=== PATIENT | female | born 1995 | race Caucasian/White ===

== ENCOUNTER 2018-09-18 15:15 | Inpatient (IN) | payer OTHER ==
[~2018-09-18] VITALS: Ht 162.6 cm; Wt 59.2 kg
[2018-09-18 15:29] VITALS: Ht 162.6 cm; Wt 59.2 kg
[2018-09-18 15:30] VITALS: BP 130/75; PULSE 95; RESP 17
[2018-09-18] MEDS ORDERED: METHYLERGONOVINE 0.2 MG INJ IM PRN (16:00)
[2018-09-18] MEDS ORDERED: CARBOPROST 250 MCG INJ IM PRN (16:00)
[2018-09-18] MEDS ORDERED: OXYTOCIN 30 UNITS/LR 500 ML IV PRN (16:00)
[2018-09-18] MEDS ORDERED: MISOPROSTOL 200 MCG TAB PR PRN (16:00)
[2018-09-18] MEDS ORDERED: TERBUTALINE 1 MG/ML INJ SC ONE (16:00)
[2018-09-18] MEDS ORDERED: CEFAZOLIN 2 GM/50 ML (PMX) 50 ML IVPB SCH (16:00)
--- NOTE | 2018-09-18 16:35 | TRIAGE ---
OB Triage Datetime Report Generated by CPN: 09/18/2018 16:34 Datetime: 09/18/2018 16:33 Time of Arrival: 09/18/2018 16:10 EGA: 37.6 Arrived By: Ambulatory Arrived From: Home Datetime: 09/18/2018 16:07 Labor Evaluation Frequency: 2-4 Monitor Mode: Palpation Duration (sec)2399: 50-80 Quality: Moderate Pattern: Normal: <= 5 Contractions in 10 Minutes Resting Tone [place]: Relaxed Heart Rate FHR Baseline Rate: 135 Monitor Mode: External US Variability: Moderate 6-25 bpm Accelerations: 15X15 Decelerations: None Category: Category I Pain Assessment Pain Scale: 9 Pain Presence: Intermittent Pain Type: Contraction Pain Location: Abdomen Pain Goal: 3 Datetime: 09/18/2018 15:49 Vaginal Exam Dilatation (cms): 1.0 Effacement (%): 80 Station: -2 Exam By: wliu Datetime: 09/18/2018 15:34 Assessment Type: Triage Maternal Assessment Level of Consciousness: Fully Conscious DTR's/Clonus: DTRs 2+; No Clonus Headache: Denies Blurred Vision: No Respiratory Effort: Unlabored; Regular Rhythm; Equal Expansion Breath Sounds, Left: Clear and Equal Breath Sounds, Right: Clear and Equal Nausea/Vomiting: Denies RUQ Epigastric Pain: Denies Lower Extremities Edema: None Degree: None Upper Extremities Edema: None Degree: None Facial Edema: None Fall Risk Assessment History of Falling: (0) No Secondary Diagnosis: (0) No Ambulatory Aid: (0) Bedrest/Nurse Assist IV Therapy: (0) No Gait: (0) Normal/Bedrest/Immobile Mental Status: (0) Oriented to Own Ability Fall Score: 0 Fall Risk Score Definition: No Risk: No action required Datetime: 09/18/2018 15:33 Time of Arrival: 09/18/2018 15:12 EGA: 37.6 Arrived By: Wheelchair Arrived From: Home Chief Complaint: Pt. came to hospital c/o lower abdominal pain since last night 11oopm, pain level 9/10 Movement: Present Contractions: Regular Rupture of Membranes: Denies Vaginal Bleeding: None Vaginal Discharge: Denies Recent Sexual Intercouse: Denies Abdominal Trauma: Not Applicable Patient Complaints: Cramping Time Provider Notified: 09/18/2018 15:50 Provider Notified: po Initial Plan: r/o labor
[2018-09-18] MEDS: LACTATED RINGER'S 1,000 ML IV SCH ×3 (16:38→19:31)
[2018-09-18] MEDS ORDERED: ONDANSETRON 4 MG INJ IV STA (18:28)
[2018-09-18] MEDS ORDERED: CITRIC ACID/NA CITRATE 30 ML CUP PO ONE (18:30)
--- NOTE | 2018-09-18 19:21 | PREAC ---
Date/Time of Note Date/Time of Note DATE: 09/18/18 TIME: 19:18 Anesthesia Eval and Record Evaluation Time Pre-Procedure Interview DATE: 09/18/18 TIME: 19:18 Age 23 Sex female NPO: Other (7 hrs, she ate at 12:30 pm) Preoperative diagnosis Repeat in labor Planned procedure Past Medical History Past Medical History: Includes : : (2), Para: (1), Gestational age: (38) Surgery & Anesthesia Issues No known issue Meds Anticoagulation: No Beta Pancho within 24 hr: No Reason Beta Pancho not given: Pt. not on B-Pancho Current Medications Lactated Ringer's 1,000 ml @ 125 mls/hr Q8H IV Last administered on 09/18/18at 18:52; Admin Dose 125 MLS/HR; Start 09/18/18 at 15:54 Cefazolin Sodium/ Dextrose 50 ml @ 100 mls/hr ONCE IVPB ; Start 09/18/18 at 16:00 Oxytocin/Lactated Ringer's 500 ml @ 0 mls/hr ONCE PRN IV .VAGINAL BLEEDING; Start 09/18/18 at 16:00 Methylergonovine Maleate (Methergine) 0.2 mg ONCE PRN IM .VAGINAL BLEEDING; Start 09/18/18 at 16:00 Carboprost Tromethamine (Hemabate) 250 mcg ONCE PRN IM .VAGINAL BLEEDING; Start 09/18/18 at 16:00 Misoprostol (Cytotec) 1,[address] .VAGINAL BLEEDING; Start 09/18/18 at 16:00 Meds reviewed: Yes Allergies Coded Allergies: No Known Allergy (Unverified , 09/18/18) Allergies Reviewed: Yes Labs/Studies Labs Reviewed: Reviewed by anesthesiologist Result Diagram: 09/18/18 1630 Laboratory Tests 09/18/18 16:30 Blood Bank Test 09/18/18 16:30 Antibody Screen NEGATIVE Blood Type A POSITIVE Rh Immune Globulin Candidate NO test: Positive Studies: ECG (n/a), CXR (n/a) Pre-procedure Exam Last vitals Vital Signs Date Temp Pulse Resp B/P (MAP) Pulse Ox O2 O2 Flow FiO2 Time Delivery Rate 09/18/18 97.8 95 17 130/75 15:30 (93) Airway: Adequate mouth opening, Adequate thyromental dist Mallampati: Mallampati II Teeth: Normal Lung: Normal Heart: Normal ASA Physical Status ASA physical status: 2 Emergency: None Planned Anesthetic Neuraxial: Spinal Planned Pain Management Sub-arachniod narcotics Pre-operative Attestations Prior to commencing anesthesia and surgery, the patient was re-evaluated, there was verification of: *The patient's identity *The results of appropriate recent lab work and preoperative vital signs *The above evaluation not changing prior to induction *Anesthetic plan, risk benefits, alternative and complications discussed with patient/family; questions answered; patient/family understands, accepts and wishes to proceed. JEANETTE MCCLELLAN MD Sep 18, 2018 19:21
--- NOTE | 2018-09-18 20:05 | HP ---
Date/Time of Note Date/Time of Note DATE: 09/18/18 TIME: 20:02 OB - History Hx of Present Free Text/Dictation 23 years old 011 with single intrauterine at 37 weeks and 6 days with a SUHAS of 10/03/2018 and previous delivery complaining of uterine contractions. She states good movement. She denies nausea, vomiting, shortness of breath, chest pain, headache, visual changes, vaginal bleeding or LOF. Chief Complaint: Uterine contractions Estimated Due Date: Oct 03, 2018 : 3 Para: 1 Spontaneous : 1 Therapeutic : 0 Care: Good Care Ultrasounds: Normal mid trimester US Obstetrical Complications: None Medical Complications: None Past Family/Social History * Past Medical, Surgical, Family and Obstetric Histories reviewed from chart. Rubella: immune RPR/VDRL: Negative GBS Status: Negative HBsAG: Negative OB Admission Exam Vital Signs Vital Signs Vital Signs Date Temp Pulse Resp B/P (MAP) Pulse Ox O2 O2 Flow FiO2 Time Delivery Rate 09/18/18 97.8 95 17 130/75 15:30 (93) Physical Exam HEENT: WNL Heart: Rhythm Normal Lungs: Clear Abdomen: WNL Extremities: Normal Cervical Dilatation: 1cm Effacement: 75% Station: -2 Membranes: Intact Heart Rate: 140's Accelerations: Accelerations Present Decelerations: No Decelerations Varibility: Moderate Contractions on Admission: < 5 Minutes Apart Intensity: Moderate Last 72 hours Lab Results CBC & BMP 09/18/18 16:30 OB Assessment/Plan Other plan: 23-year-old 3 para 1011 at 37 weeks and 6 days with previous delivery in labor - FHR: No sign of metabolic acidosis- Category I - Continuous EFM, toco - CBC, blood type and screen - Please see the orders - A+/Rubella: Immune - GBS: Negative The risk of delivery including but not limited to bleeding, infection, injury to other organs (bowel, bladder, ureter, vessels, nerves), injury to fetus, blood transfusion, blood transfusion related infection, risk of anesthesia, adhesion, needs for future , removal of uterus or any other indicated surgery was discussed with the patient and her family. She expressed understanding. All of her questions were answered. She signed the informed consent. PHYSICIAN'S VERIFICATION OF INFORMED CONSENT The patient and her family was counseled regarding the procedure, its indications, risks, potential complications and alternatives and any questions were answered. Consent was obtained. PLANNED PROCEDURE/TREATMENT: delivery with possible using vacuum/forceps and any other indicated surgery PHYSICIAN'S VERIFICATION OF INFORMED CONSENT FOR BLOOD TRANSFUSION: There is a reasonable possibility that blood transfusion will be necessary as a result of the patient's procedure. I have discussed the following with the patient /patient's legal branch sales and service representative: An explanation of the benefits and risks of the transfusion of blood or blood products and the possible alternatives. All questions have been answered to the patient's satisfaction. INFORMED CONSENT:The patient has been informed of: The nature of the proposed care, treatment, services, medications, interventions or procedures. Potential benefits, risks or side effects, including potential problems related to recuperation. The likelihood of achieving care treatment and service goals. Reasonable alternatives to the proposed care, treatment and service. The relevant risks, benefits and side effects related to alternatives, including the possible results of not receiving care, treatment and services. When indicated, any limitations on the confidentiality of information learned from or about the patient. If appropriate, the risks, benefits and alternatives of the drugs to be used for sedation/analgesia including moderate sedation. If appropriate, patient has been provided information on the risks, benefits and alternatives to the transfusion of blood and/or blood products. If appropriate, patient has been provided information regarding the [employer] Dejan Blood Act. WARREN JIMENES Sep 18, 2018 20:05
[2018-09-18] MEDS ORDERED: PHENYLephrine (100 MCG/ML) 10ML SYG ONE (20:29)
[2018-09-18] MEDS ORDERED: morphine SULFATE/PF (10 MG/10 ML) INJ ONE (20:29)
[2018-09-18] MEDS ORDERED: OXYTOCIN 10 UNIT INJ ONE (20:29)
[2018-09-18] MEDS ORDERED: HYDROmorphONE 0.5 MG/0.5 ML SYG IV PRN ×2 (21:00)
[2018-09-18] MEDS ORDERED: morphine 2 MG INJ IV PRN ×2 (21:00)
[2018-09-18] MEDS ORDERED: DIPHENHYDRAMINE 50 MG INJ IV PRN ×2 (21:00)
[2018-09-18] MEDS ORDERED: NALOXONE (0.4 MG/ML) INJ IV PRN (21:00)
[2018-09-18] MEDS ORDERED: NALBUPHINE HCL (10 MG/1 ML) INJ IV PRN (21:00)
[2018-09-18] MEDS ORDERED: EPHEDrine SULFATE 50 MG/5 ML SYG IV PRN (21:00)
[2018-09-18] MEDS ORDERED: ONDANSETRON 4 MG INJ IV PRN (21:00)
[2018-09-18] MEDS ORDERED: OXYCODONE/ACETAMINOPHEN (5/325) TAB PO PRN (21:00)
[2018-09-18] MEDS ORDERED: HYDROCODONE/APAP (5/325) TAB PO PRN (21:00)
[2018-09-18] MEDS ORDERED: ACETAMINOPHEN 500 MG TAB PO PRN (21:00)
[2018-09-18] MEDS ORDERED: METOCLOPRAMIDE 10 MG INJ IV PRN (21:00)
[2018-09-18] MEDS ORDERED: MEPERIDINE 25 MG INJ IV PRN (21:00)
[2018-09-18] MEDS ORDERED: KETOROLAC 30 MG INJ ONE (21:01)
[2018-09-18] MEDS ORDERED: ONDANSETRON 4 MG INJ ONE (21:01)
[2018-09-18] MEDS ORDERED: DEXAMETHASONE 4 MG/ML 1 ML INJ ONE (21:01)
[2018-09-18] MEDS ORDERED: METOCLOPRAMIDE 10 MG INJ ONE (21:01)
[2018-09-18] MEDS: OXYTOCIN 30 UNITS/LR 500 ML IV SCH ×2 (21:50→22:42)
--- NOTE | 2018-09-18 21:50 | PAC ---
Date/Time of Note Date/Time of Note DATE: 09/18/18 TIME: 21:49 Post-Anesthesia Notes Post-Anesthesia Note Last documented vital signs Vital Signs Date Temp Pulse Resp B/P (MAP) Pulse Ox O2 O2 Flow FiO2 Time Delivery Rate 09/18/18 98,5 95 17 114/55 98 room air 21:500 (63) Activity: WNL Respiratory function: WNL Cardiovascular function: WNL Mental status: Baseline Pain reasonably controlled: Yes Hydration appropriate: Yes Nausea/Vomiting absent: Yes JEANETTE MCCLELLAN MD Sep 18, 2018 21:50
--- NOTE | 2018-09-18 21:56 | OPR ---
Operative Report Planned Procedure Procedure date Sep 18, 2018 Procedure(s) Repeat low transverse delivery Performed by see signature line Furnace Roaster: AR BLUM MD Anesthesiologist: JEANETTE MCCLELLAN MD Pre-procedure diagnosis 23 years old 011 with previous delivery at 37 weeks and 6 days in labor desiring repeat delivery. She declined TOLAC [id number] Anesthesia Type: [id number] spinal Post-Procedure Post-procedure diagnosis 1. 23 years old 011 with previous delivery at 37 weeks and 6 days in labor desiring repeat delivery. She declined TOLAC 2. There was a 4 cm window at right side of lower uterine segment Findings 1. Normal uterus except 4 cm window at right side of lower uterine segment. Normal fallopian tubes and ovaries 2. Viable male in cephalic presentation. 8 at one minute and 9 in 5 minutes. Weight: 2940 g - 6 pound 8 ounces. Time of delivery: 20: 59 3. Placenta with three vessel cord 4. Amniotic fluid - Clear Estimated Blood Loss: 500 - 600 mls Specimen(s) none Grafts/Implant(s) none Complication(s) none Pt Condition post procedure: stable Disposition: PACU Procedure Description INDICATION AND HISTORY: A 23 years old 011 with previous delivery at 37 weeks and 6 days in labor desiring repeat delivery. She declined TOLAC. The risk of delivery including but not limited to bleeding, infection, injury to other organs (bowel, bladder, ureter, vessels, nerves), injury to fetus, blood transfusion, blood transfusion related infection, risk of anesthesia, adhesion, needs for future , removal of uterus or any other indicated surgery was discussed with the patient and her family. She expressed understanding. All of her questions were answered. She signed the informed consent. DESCRIPTION OF OPERATION: The patient was taken to the operating room, where she was identified and the procedure was verified. The patient received two gram of Ancef 30 minutes prior to surgery. After adequate spinal anesthesia, the patient placed in the dorsal supine position with a left tilt. The heart rate was 135 bpm. The patient was then prepped and draped in the normal sterile fashion. A Pfannenstiel skin incision was made and carried down to the fascia with knife. The fascia was incised in the midline and the fascial incision was carried laterally with knife. The superior portion of the fascial incision was then grasped with Yohan clamps and tented up and dissected off the underlying rectus muscle with sharp dissection. The lower portion of the fascial incision was then made in a similar fashion. The rectus muscle was and the peritoneum was entered. The peritoneal incision was then stretched and an Burak retractor was inserted. As noted above there was a 4 cm window at the right side of lower uterine segment, an incision was made above the window in a transverse fashion with a knife and extended bluntly. The was delivered atraumatically in cephalic presentation with the above findings. The umbilical cord was clamped and cut. The neonatology resuscitation team was present and the baby was handed to them. A cord blood sample was obtained for further evaluation. The placenta and membrane, which appeared normal were Removed. The uterus was exteriorized and cleared of all clot and debris. The uterus was then closed in a two layer fashion with 0-Monocryl. At the time of closure, hemostasis was noted. The gutters were irrigated. The peritoneum was reapproximated with 3-0 Vicryl. The muscle was reapproximated with 3-0 Vicryl. The fascia was approximated with 0-Vicryl in a running fashion. *The subcutaneous tissue was re approximated with 3-0 vicryl. The skin was closed with 4-0 Monocryl. All instruments, sponges and needle counts were correct x3. The patient tolerated the procedure well. She transferred to the recovery room in stable condition. WARREN JIMENES Sep 18, 2018 21:56
[2018-09-18] MEDS ORDERED: OXYTOCIN 30 UNITS/LR 500 ML IVPB ONE (22:00)
[2018-09-18 23:15] VITALS: BP 115/60; PULSE 75; RESP 20
[2018-09-18 23:34] VITALS: BP 111/54; PULSE 70; RESP 18
[2018-09-18 23:45] VITALS: BP 110/57; PULSE 74; RESP 20
[2018-09-19] VITALS (8 sets, daily range): BP systolic 101–118; BP diastolic 50–69; PULSE 67–80; RESP 17–18
[2018-09-19] MEDS: DEXTROSE 5%-LR 1,000 ML IV SCH ×2 (00:33→12:45)
[2018-09-19] MEDS ORDERED: OXYTOCIN 30 UNITS/LR 500 ML IV SCH (00:33)
[2018-09-19] MEDS ORDERED: LANOLIN HPA 1 PKT TOP PRN (01:00)
[2018-09-19] MEDS ORDERED: METHYLERGONOVINE 0.2 MG TAB PO PRN (01:00)
[2018-09-19] MEDS ORDERED: METHYLERGONOVINE 0.2 MG INJ IM PRN (01:00)
[2018-09-19] MEDS ORDERED: OXYTOCIN 30 UNITS/LR 500 ML IV PRN (01:00)
[2018-09-19] MEDS ORDERED: MISOPROSTOL 200 MCG TAB PR PRN (01:00)
[2018-09-19] MEDS ORDERED: CARBOPROST 250 MCG INJ IM PRN (01:00)
[2018-09-19] MEDS: SENNA/DOCUSATE NA (8.6MG/50MG) TAB PO SCH ×2 (10:02→21:36)
[2018-09-19] MEDS ORDERED: HYDROCODONE/APAP (5/325) TAB NGT PRN (11:00)
[2018-09-19] MEDS ORDERED: DIPHTH/TET/ACEL PERTUSS (ADULT) 0.5 ML VIAL IM* ONE (11:00)
[2018-09-19] MEDS: KETOROLAC 30 MG INJ IV PRN ×2 (11:07→17:04)
--- NOTE | 2018-09-19 18:12 | PN ---
Date/Time of Note Date/Time of Note DATE: 09/19/18 TIME: 18:10 OB Subjective Subjective Subjective POD#1 Patient is doing well. She denies nausea, vomiting, shortness of breath, chest pain, headache. She has been ambulating without difficulty, tolerating regular diet. Pain is well controlled on current medications OB Objective Objective Objective Vital Signs Date Temp Pulse Resp B/P (MAP) Pulse Ox O2 O2 Flow FiO2 Time Delivery Rate 09/19/18 98.1 71 18 101/50 96 Room Air 16:00 (67) General: AAO X 3, comfortable, NAD, appropriate mood and affect. Heart: RRR +S1, +S2, no murmurs. Lungs: Clear to auscultation (B/L), no rales, rhonchi or wheezing. ABD: +BS. Soft, non-tender. Uterus 2 cm below umbilicus Incision: Clear, dry, intact. No erythema, drainage or induration. Flank: No CVA tenderness (B/L) LE: Mild edema. No clubbing, cyanosis, thigh or calf tenderness (B/L). Homans 'sign is negative OB Assessment/Plan Other plan: 23-year-old 2 repeat s/p at delivery at 37 weeks and 6 days. POD#1 - AF, VSS - Contraception methods with R/B/A/FR discussed - Continue care - Operative findings including 4 cm window at right side of lower uterine segment discussed in detail with patient. I strongly recommend he discuss with her BUCKLE ATTACHER as soon as possible got again. WARREN JIMENES Sep 19, 2018 18:12
[2018-09-19] MEDS: HYDROCODONE/APAP (5/325) TAB GTB SCH (21:36)
[2018-09-19] MEDS: OXYTOCIN 30 UNITS/LR 500 ML IV SCH (22:00)
[2018-09-19] MEDS: IBUPROFEN 800 MG TAB PO SCH (22:00)
[2018-09-20] MEDS: OXYTOCIN 30 UNITS/LR 500 ML IV SCH ×7 (02:00→22:00)
[2018-09-20 04:00] VITALS: BP 103/51; PULSE 70; RESP 18
[2018-09-20] MEDS: HYDROCODONE/APAP (5/325) TAB GTB SCH ×3 (06:01→22:32)
[2018-09-20] MEDS: IBUPROFEN 800 MG TAB PO SCH ×3 (06:01→22:32)
[2018-09-20] MEDS: DEXTROSE 5%-LR 1,000 ML IV SCH ×3 (06:03→16:33)
[2018-09-20 08:00] VITALS: BP 105/59; PULSE 69; RESP 18
[2018-09-20] MEDS: SENNA/DOCUSATE NA (8.6MG/50MG) TAB PO SCH ×2 (09:00→20:44)
--- NOTE | 2018-09-20 14:48 | PN ---
Date/Time of Note Date/Time of Note DATE: 09/20/18 TIME: 14:45 OB Subjective Subjective Subjective POD#2 Patient is doing well. She denies nausea, vomiting, shortness of breath, chest pain, headache. She has been ambulating without difficulty, tolerating regular diet. Pain is well controlled on current medications OB Objective Objective Objective VS - Last 72 Hours, by Label Date Temp Pulse Resp B/P (MAP) Pulse Ox O2 O2 Flow FiO2 Time Delivery Rate 09/20/18 98.5 69 18 105/59 Room Air 08:00 (74) 09/20/18 97.9 70 18 103/51 Room Air 04:00 (68) 09/19/18 98.2 80 18 118/69 Room Air 19:50 (85) 09/19/18 98.2 80 18 118/69 Room Air 19:50 (85) 09/19/18 98.1 71 18 101/50 96 Room Air 16:00 (67) 09/19/18 99.3 68 18 103/50 97 Room Air 12:00 (67) 09/19/18 98.5 70 18 112/59 Room Air 08:30 (76) 09/19/18 72 18 105/58 Room Air 03:52 (74) 09/19/18 98.0 67 17 106/59 98 Room Air 01:30 (75) 09/19/18 98.5 73 18 111/58 Room Air 00:20 (75) 09/19/18 99.2 69 18 108/52 97 Room Air 00:09 (70) 09/18/18 74 20 110/57 98 Room Air 23:45 (74) 09/18/18 70 18 111/54 98 Room Air 23:34 (73) 09/18/18 98.7 75 20 115/60 97 Room Air 23:15 (78) 09/18/18 97.8 95 17 130/75 15:30 (93) General: AAO X 3, comfortable, NAD, appropriate mood and affect. ABD: +BS. Soft, non-tender. Uterus 2 cm below umbilicus Incision: Clear, dry, intact. No erythema, drainage or induration. Flank: No CVA tenderness (B/L) LE: Mild edema. No clubbing, cyanosis, thigh or calf tenderness (B/L). Homans 'sign is negative Laboratory Tests Test 09/18/18 16:30 09/19/18 06:17 09/19/18 06:34 White Blood Count 9.2 10^3/ul 14.5 10^3/ul Red Blood Count 4.81 10^6/ul 3.96 10^6/ul Hemoglobin 12.6 g/dl 10.6 g/dl Hematocrit 38.7 % 32.6 % Mean Corpuscular Volume 80.5 fl 82.3 fl Mean Corpuscular 26.2 pg 26.8 pg Hemoglobin Mean Corpuscular 32.6 g/dl 32.5 g/dl Hemoglobin Concent Red Cell Distribution 16.7 % 16.3 % Width Platelet Count 221 10^3/UL 195 10^3/UL Mean Platelet Volume 11.1 fl 11.0 fl Immature Granulocytes % 0.400 % 0.600 % Neutrophils % 70.4 % 85.4 % Lymphocytes % 23.3 % 8.1 % Monocytes % 5.7 % 5.8 % Eosinophils % 0.1 % 0.0 % Basophils % 0.1 % 0.1 % Nucleated Red Blood Cells 0.0 /100WBC 0.0 /100WBC % Immature Granulocytes # 0.040 10^3/ul 0.080 10^3/ul Neutrophils # 6.5 10^3/ul 12.4 10^3/ul Lymphocytes # 2.2 10^3/ul 1.2 10^3/ul Monocytes # 0.5 10^3/ul 0.8 10^3/ul Eosinophils # 0.0 10^3/ul 0.0 10^3/ul Basophils # 0.0 10^3/ul 0.0 10^3/ul Nucleated Red Blood Cells 0.0 10^3/ul 0.0 10^3/ul # Prothrombin Time 12.2 Sec Prothrombin Time Ratio 1.0 INR International 0.89 Normalized Ratio Activated 25.9 Sec Partial Thromboplast Time Rapid Plasma Reagin NONREACTIVE Hepatitis B Surface NEGATIVE Antigen Lab Scanned Report REFERENCE LAB [id number] OB Assessment/Plan Other plan: 23-year-old s/p repeat delivery at 37 weeks and 6 days. POD#2 - AF, VSS - Contraception methods with R/B/A/FR discussed - Continue care - Discharge home tomorrow - Prescription and instruction given - Follow-up in 1 and 6 weeks HADADIAN,SEDI Sep 20, 2018 14:48
--- NOTE | 2018-09-20 14:53 | DS ---
Date/Time of Note Date/Time of Note DATE: 09/20/18 TIME: 14:48 Obstetrical Discharge Record Final Diagnosis Final Diagnosis: Term delivered Other Final Diagnosis 23-year-old s/p repeat delivery at 37 weeks and 6 days. POD#2. She is ambulating and tolerating regular diet. She is voiding without difficulty. Pain is well controlled. - AF, VSS - Contraception methods with R/B/A/FR discussed - Continue care - Discharge home tomorrow - Prescription and instruction given - Follow-up in 1 and 6 weeks Section Section: Repeat Condition on Discharge Physical Assessment Last Vitals: Vital Signs Date Temp Pulse Resp B/P (MAP) Pulse Ox O2 O2 Flow FiO2 Time Delivery Rate 09/20/18 98.5 69 18 105/59 Room Air 08:00 (74) 09/19/18 96 16:00 Voiding: Yes Bowel Movement: Yes Breast: Soft, non-tender Fundus: Firm Calf Tenderness: No Patient Condition: Stable WARREN JIMENES Sep 20, 2018 14:53
[2018-09-20 16:41] VITALS: BP 125/67; PULSE 79; RESP 18
[2018-09-20 20:00] VITALS: BP 105/55; PULSE 72; RESP 17
[2018-09-21] MEDS: DEXTROSE 5%-LR 1,000 ML IV SCH ×2 (00:33→08:33)
[2018-09-21] MEDS: OXYTOCIN 30 UNITS/LR 500 ML IV SCH ×3 (02:00→10:00)
[2018-09-21 03:38] VITALS: BP 117/58; PULSE 71; RESP 18
[2018-09-21] MEDS: IBUPROFEN 800 MG TAB PO SCH (05:58)
[2018-09-21] MEDS: HYDROCODONE/APAP (5/325) TAB GTB SCH (06:00)
[2018-09-21 08:00] VITALS: BP 111/59; PULSE 77; RESP 18
[2018-09-21] MEDS ORDERED: MEASLES,MUMPS,RUBELLA VACCINE INJ SC* ONE (09:00)
[2018-09-21] MEDS ORDERED: DIPHTH/TET/ACEL PERTUSS (ADULT) 0.5 ML VIAL IM* ONE (09:00)
[2018-09-21] MEDS: SENNA/DOCUSATE NA (8.6MG/50MG) TAB PO SCH (09:00)
[2018-09-21 12:59] VITALS: BP 120/76; PULSE 74; RESP 19
== END 2018-09-21 13:45 | disposition home or self-care (01) | DRG 788 ==
LOC: OBT 15:15 → L-D 15:17 → OBT 15:51 → L-D 20:01 → PP1 09-19 00:18
PROVIDERS: ADMIT Obstetrics & Gynecology; ATTEND Obstetrics & Gynecology
PROC: 4A1HXCZ Monitoring of Products of Conception, Cardiac Rate, External Approach (ICD-10-PCS; 2018-09-18)
PROC: 10D00Z1 Extraction of Products of Conception, Low, Open Approach (ICD-10-PCS; principal; 2018-09-18 20:00)
DX: O34.211 Maternal care for low transverse scar from previous cesarean delivery (principal); Z3A.37 37 weeks gestation of pregnancy; Z37.0 Single live birth
CPT/HCPCS: 85025; 85610; 85730; 86592; 86850; 86900; 86901; 87340; 99464; G0463; J0690; J1100; J1885; J2274; J2370; J2405; J2590; J2765; J3105; J7120; J7121